=== PATIENT | male | born 1990 | race Caucasian/White ===

== ENCOUNTER 2017-08-14 12:24 | Emergency (ER) | payer SELFPAY ==
[~2017-08-14] VITALS: Ht 167.6 cm; Wt 94.8 kg
[2017-08-14] MEDS ORDERED: TYLENOL WITH C1 EACH PO (15:51)
[2017-08-14] MEDS ORDERED: PEN-VEE K,VEET500 MG PO (15:51)
[2017-08-14 16:04] VITALS: BP 148/78
== END 2017-08-14 16:05 | disposition home or self-care (01) ==
LOC: EME 12:24
DX: K04.7 Periapical abscess without sinus (principal)
CPT/HCPCS: 99281; 99282

== ENCOUNTER 2018-01-31 11:52 | Emergency (ER) | payer SELFPAY ==
[~2018-01-31] VITALS: Ht 172.7 cm; Wt 86.3 kg
[~2018-01-31 11:52] MED LIST: PEN-VEE K,VEET500 MG PO; TYLENOL WITH C1 EACH PO
[2018-01-31] MEDS ORDERED: MOTRIN800 MG PO (14:30)
[2018-01-31 14:54] VITALS: BP 136/82
== END 2018-01-31 14:55 | disposition home or self-care (01) ==
LOC: EME 11:52
DX: S93.402A Sprain of unspecified ligament of left ankle, initial encounter (principal); W10.9XXA Fall (on) (from) unspecified stairs and steps, initial encounter
CPT/HCPCS: 73610; 99281; 99283